=== PATIENT | male | born 1990 | race Caucasian/White ===

== ENCOUNTER 2025-05-20 22:00 | Inpatient (IN) | payer SELFPAY ==
[~2025-05-20 22:00] MED LIST: Iopamidol 300 61% 100 ML VIAL FS ONE
[2025-05-20] MEDS ORDERED: Ondansetron PF 4 MG/2 ML Vial ONE (22:30)
[2025-05-20 22:38] LABS: #Basophils 0.05 10x3/uL (0.0-0.2); #Eosinophils 0.16 10x3/uL (0.0-0.5); #Monocytes 0.81 10x3/uL (0.0-1.1); #Neutrophils 3.72 10x3/uL (1.5-8.4); %Basophils 0.8 % (0.0-2.0); %Eosinophils 2.5 % (0.0-6.0); %Lymphocytes 26.9 % (18.0-47.0); %Monocytes 12.5 % (0.0-10.0); %Neutrophils 57.1 % (40.0-75.0); Hematocrit 40.0 % (38.8-50.0); Hemoglobin 14.6 g/dL (13.5-17.5); Mean Corpuscular Hemoglobin 33.6 pg (27.0-33.0); Mean Corpuscular Volume 92.2 fL (81.2-95.1); Platelet Count 146 10x3/uL (150-450); Red Blood Cell (RBC) Count 4.34 10x6/uL (4.32-5.72); White Blood Cell (WBC) Count 6.50 10x3/uL (3.5-10.5)
[2025-05-20 22:52] LABS: Glucose, Urine (Dipstick) Normal (Negative); Leukocyte 25 (Negative); Protein, Urine (Dipstick) 30 mg/dl (Neg-Trace); Specific Gravity, Urine 1.015 (1.005-1.030)
[2025-05-20 22:52] LABS: ALT (SGPT) 154 U/L (Less than 45); AST (SGOT) 66 U/L (11-34); Albumin 4.9 g/dL (3.1-4.5); Alkaline Phosphatase 47 U/L (40-110); Anion Gap 16 mmol/L (10-20); BUN (Urea Nitrogen) 11 mg/dL (8.9-20.6); Bilirubin, Total 2.1 mg/dL (0.3-1.2); Calc. Creatinine Clearance 0 mL/min (70-130); Calcium 10.0 mg/dL (7.8-10.44); Carbon Dioxide 24 mmol/L (22-29); Chloride 102 mmol/L (98-107); Globulin 3.4 g/dL (2.4-3.5); Glucose 90 mg/dL (70-105); Lipase 266 U/L (8-78); Magnesium 1.9 mg/dL (1.6-2.6); Potassium 3.6 mmol/L (3.5-5.1); Sodium 138 mmol/L (136-145)
[2025-05-20 23:02] LABS: Bacteria/HPF None Seen HPF (None Seen); CAUTI Indications for Culture Dysuria,urgency,freq; RBC/HPF None Seen HPF (0-3); WBC/HPF 0-3 HPF (0-3)
[2025-05-20 23:03] LABS: Urine Culture Reflex No No
[2025-05-20] MEDS ORDERED: Ketorolac Tromethamine 30 MG (1 mL) VIAL ONE (23:12)
[2025-05-20] MEDS ORDERED: HYDROmorphone 0.5 MG/0.5 ML SYRINGE ONE (23:36)
[2025-05-20] MEDS ORDERED: Famotidine/PF 20 mg/2ml Vial ONE (23:36)
[2025-05-20] MEDS ORDERED: Guaifenesin DM 100-10/5 ML UDCUP PO PRN (23:53)
[2025-05-20] MEDS ORDERED: Senokot S 8.6-50 MG TAB PO PRN (23:53)
[2025-05-20] MEDS ORDERED: Acetaminophen 325 MG TAB PO PRN (23:53)
[2025-05-20] MEDS ORDERED: Ondansetron PF 4 MG/2 ML Vial IVP PRN (23:53)
[2025-05-21 00:52] VITALS: BMI 25.4
[2025-05-21] MEDS: HYDROcodone/Acetaminophen 10/325 mg Tablet PO PRN (01:06)
[2025-05-21] MEDS: diphenhydrAMINE 50 MG/ML VIAL IVP SCH ×2 (01:16→23:38)
[2025-05-21 04:16] LABS: #Basophils 0.05 10x3/uL (0.0-0.2); #Eosinophils 0.25 10x3/uL (0.0-0.5); #Monocytes 0.61 10x3/uL (0.0-1.1); #Neutrophils 2.21 10x3/uL (1.5-8.4); %Basophils 1.0 % (0.0-2.0); %Eosinophils 5.0 % (0.0-6.0); %Lymphocytes 37.7 % (18.0-47.0); %Monocytes 12.2 % (0.0-10.0); %Neutrophils 44.1 % (40.0-75.0); Hematocrit 36.4 % (38.8-50.0); Hemoglobin 13.2 g/dL (13.5-17.5); Mean Corpuscular Hemoglobin 34.0 pg (27.0-33.0); Mean Corpuscular Volume 93.8 fL (81.2-95.1); Platelet Count 123 10x3/uL (150-450); Red Blood Cell (RBC) Count 3.88 10x6/uL (4.32-5.72); White Blood Cell (WBC) Count 5.01 10x3/uL (3.5-10.5)
[2025-05-21 04:17] LABS: INR-International Normal Ratio 1.1; PTT 26.8 sec (22.0-33.0); Prothrombin Time 12.1 sec (9.5-12.1)
[2025-05-21 04:24] LABS: ALT (SGPT) 129 U/L (Less than 45); AST (SGOT) 52 U/L (11-34); Albumin 4.2 g/dL (3.1-4.5); Alkaline Phosphatase 39 U/L (40-110); Anion Gap 17 mmol/L (10-20); BUN (Urea Nitrogen) 9 mg/dL (8.9-20.6); Bilirubin, Total 1.7 mg/dL (0.3-1.2); Calc. Creatinine Clearance 162 mL/min (70-130); Calcium 8.9 mg/dL (7.8-10.44); Carbon Dioxide 22 mmol/L (22-29); Chloride 107 mmol/L (98-107); Globulin 2.8 g/dL (2.4-3.5); Glucose 82 mg/dL (70-105); Lipase 113 U/L (8-78); Magnesium 1.8 mg/dL (1.6-2.6); Potassium 4.2 mmol/L (3.5-5.1); Sodium 142 mmol/L (136-145)
[2025-05-21 04:27] LABS: Cardiac Risk 1.5 (Less than 4.5); Cholesterol 119 mg/dl (< 200 Desired); HDL Cholesterol 82 mg/dL (>60 Neg Risk); LDL Cholesterol, Calculated 25 mg/dL; Triglycerides 60 mg/dL (Less than 150)
[2025-05-21] MEDS: Ketorolac Tromethamine 30 MG (1 mL) VIAL IVP SCH (04:48)
[2025-05-21] MEDS: Multivit, Therapeutic 1 TAB PO SCH (08:50)
[2025-05-21] MEDS: Folic Acid 1 MG TAB PO SCH (08:50)
[2025-05-21] MEDS: Enoxaparin 40 MG (0.4 mL) SYRINGE SC SCH (08:51)
[2025-05-21] MEDS: Famotidine/PF 20 mg/2ml Vial SLOW IVP SCH (08:51)
[2025-05-21] MEDS ORDERED: Acetaminophen 500 MG TAB PO SCH (10:30)
[2025-05-21] MEDS ORDERED: HYDROmorphone 0.5 MG/0.5 ML SYRINGE SLOW IVP PRN (10:31)
[2025-05-21] MEDS: Acetaminophen 500 MG TAB PO SCH (10:58)
[2025-05-21] MEDS: HYDROmorphone 0.5 MG/0.5 ML SYRINGE SLOW IVP SCH ×2 (10:59→18:33)
[2025-05-21 12:15] LABS: Cocaine Metabolite Screen Negative (Negative); THC/Cannabinoid Screen Negative (Negative); Tricyclic Screen Negative (Negative)
[2025-05-21] MEDS: HYDROmorphone 2 MG TAB PO PRN (16:00)
[2025-05-22 05:45] LABS: ALT (SGPT) 88 U/L (Less than 45); AST (SGOT) 35 U/L (11-34); Albumin 3.6 g/dL (3.1-4.5); Alkaline Phosphatase 35 U/L (40-110); Anion Gap 9 mmol/L (10-20); BUN (Urea Nitrogen) 6 mg/dL (8.9-20.6); Bilirubin, Total 1.3 mg/dL (0.3-1.2); Calc. Creatinine Clearance 157 mL/min (70-130); Calcium 8.7 mg/dL (7.8-10.44); Carbon Dioxide 27 mmol/L (22-29); Chloride 106 mmol/L (98-107); Globulin 2.6 g/dL (2.4-3.5); Glucose 166 mg/dL (70-105); Lipase 52 U/L (8-78); Magnesium 1.8 mg/dL (1.6-2.6); Potassium 3.8 mmol/L (3.5-5.1); Sodium 138 mmol/L (136-145)
[2025-05-22 06:01] LABS: Platelet Count 119 10x3/uL (150-450)
[2025-05-22 06:02] LABS: #Basophils 0.04 10x3/uL (0.0-0.2); #Eosinophils 0.42 10x3/uL (0.0-0.5); #Monocytes 0.38 10x3/uL (0.0-1.1); #Neutrophils 1.61 10x3/uL (1.5-8.4); %Basophils 0.9 % (0.0-2.0); %Eosinophils 9.7 % (0.0-6.0); %Lymphocytes 43.3 % (18.0-47.0); %Monocytes 8.8 % (0.0-10.0); %Neutrophils 37.1 % (40.0-75.0); Hematocrit 36.2 % (38.8-50.0); Hemoglobin 12.6 g/dL (13.5-17.5); Mean Corpuscular Hemoglobin 32.8 pg (27.0-33.0); Mean Corpuscular Volume 94.3 fL (81.2-95.1); Red Blood Cell (RBC) Count 3.84 10x6/uL (4.32-5.72); White Blood Cell (WBC) Count 4.34 10x3/uL (3.5-10.5)
[2025-05-22] MEDS: Cyanocobalamin (Vitamin B-12) 1,000 MCG TAB PO SCH (08:26)
[2025-05-22] MEDS: diphenhydrAMINE 25 MG CAP PO SCH (21:36)
[2025-05-23 05:01] LABS: Platelet Count 126 10x3/uL (150-450)
[2025-05-23 05:02] LABS: Hematocrit 37.3 % (38.8-50.0); Hemoglobin 12.9 g/dL (13.5-17.5); Mean Corpuscular Hemoglobin 32.7 pg (27.0-33.0); Mean Corpuscular Volume 94.4 fL (81.2-95.1); Red Blood Cell (RBC) Count 3.95 10x6/uL (4.32-5.72); White Blood Cell (WBC) Count 4.18 10x3/uL (3.5-10.5)
[2025-05-23 05:04] LABS: #Basophils 0.05 10x3/uL (0.0-0.2); #Eosinophils 0.39 10x3/uL (0.0-0.5); #Monocytes 0.50 10x3/uL (0.0-1.1); #Neutrophils 1.47 10x3/uL (1.5-8.4); %Basophils 1.2 % (0.0-2.0); %Eosinophils 9.3 % (0.0-6.0); %Lymphocytes 42.1 % (18.0-47.0); %Monocytes 12.0 % (0.0-10.0); %Neutrophils 35.2 % (40.0-75.0)
[2025-05-23 05:08] LABS: ALT (SGPT) 74 U/L (Less than 45); AST (SGOT) 28 U/L (11-34); Albumin 3.9 g/dL (3.1-4.5); Alkaline Phosphatase 55 U/L (40-110); Anion Gap 11 mmol/L (10-20); BUN (Urea Nitrogen) 6 mg/dL (8.9-20.6); Bilirubin, Total 0.5 mg/dL (0.3-1.2); Calc. Creatinine Clearance 145 mL/min (70-130); Calcium 8.9 mg/dL (7.8-10.44); Carbon Dioxide 29 mmol/L (22-29); Chloride 107 mmol/L (98-107); Globulin 2.7 g/dL (2.4-3.5); Glucose 102 mg/dL (70-105); Lipase 42 U/L (8-78); Magnesium 1.9 mg/dL (1.6-2.6); Potassium 3.8 mmol/L (3.5-5.1); Sodium 143 mmol/L (136-145)
[2025-05-23] MEDS ORDERED: Bupivacaine/Epinephrine 0.25% 30 ML VIAL ONE (12:00)
[2025-05-23] MEDS ORDERED: Ondansetron PF 4 MG/2 ML Vial ONE (13:25)
[2025-05-23] MEDS ORDERED: PROPOFOL 40 ML ONE (13:25)
[2025-05-23] MEDS ORDERED: Rocuronium Bromide 10 MG/ML (10ML VIAL) ONE ×2 (13:25→13:54)
[2025-05-23] MEDS ORDERED: Lidocaine 1% PF 5 ML VIAL ONE (13:25)
[2025-05-23] MEDS ORDERED: SUGAMMADEX SODIUM 200 MG/2 ML VIAL ONE ×2 (13:25→14:27)
[2025-05-23] MEDS ORDERED: Glycopyrrolate 0.2 MG/ML 5 ML SYRINGE ONE ×2 (13:53→14:27)
[2025-05-23] MEDS ORDERED: Lidocaine 4% PF 5 ML AMP ONE ×2 (13:53→14:27)
[2025-05-23] MEDS: HYDROcodone/Acetaminophen 7.5/325 mg Tablet PO PRN (21:10)
[2025-05-23] MEDS: diphenhydrAMINE 25 MG CAP PO PRN (22:10)
[2025-05-24 05:09] LABS: #Basophils Less than 0.03 10x3/uL (0.0-0.2); #Eosinophils Less than 0.03 10x3/uL (0.0-0.5); #Monocytes 0.42 10x3/uL (0.0-1.1); #Neutrophils 6.20 10x3/uL (1.5-8.4); %Basophils 0.1 % (0.0-2.0); %Eosinophils 0.0 % (0.0-6.0); %Lymphocytes 8.6 % (18.0-47.0); %Monocytes 5.8 % (0.0-10.0); %Neutrophils 85.1 % (40.0-75.0); Hematocrit 37.6 % (38.8-50.0); Hemoglobin 13.0 g/dL (13.5-17.5); Mean Corpuscular Hemoglobin 33.0 pg (27.0-33.0); Mean Corpuscular Volume 95.4 fL (81.2-95.1); Platelet Count 128 10x3/uL (150-450); Red Blood Cell (RBC) Count 3.94 10x6/uL (4.32-5.72); White Blood Cell (WBC) Count 7.29 10x3/uL (3.5-10.5)
[2025-05-24 05:27] LABS: ALT (SGPT) 77 U/L (Less than 45); AST (SGOT) 50 U/L (11-34); Albumin 3.9 g/dL (3.1-4.5); Alkaline Phosphatase 41 U/L (40-110); Anion Gap 11 mmol/L (10-20); BUN (Urea Nitrogen) 5 mg/dL (8.9-20.6); Bilirubin, Total 0.7 mg/dL (0.3-1.2); Calc. Creatinine Clearance 143 mL/min (70-130); Calcium 9.0 mg/dL (7.8-10.44); Carbon Dioxide 27 mmol/L (22-29); Chloride 107 mmol/L (98-107); Globulin 2.7 g/dL (2.4-3.5); Glucose 143 mg/dL (70-105); Lipase 17 U/L (8-78); Magnesium 1.7 mg/dL (1.6-2.6); Potassium 4.1 mmol/L (3.5-5.1); Sodium 141 mmol/L (136-145)
[2025-05-24 10:50] VITALS: BP 123/76; TEMP 98.1
== END 2025-05-24 11:55 | disposition home or self-care (01) | DRG 418 ==
LOC: CSHERS 22:00 → CSHERHOLD 23:53 → CSHTELE 05-21 00:45
PROVIDERS: ADMIT Student in an Organized Health Care Education/Training Program; ATTEND Internal Medicine
PROC: 0FT44ZZ Resection of Gallbladder, Percutaneous Endoscopic Approach (ICD-10-PCS; principal; 2025-05-23)
PROC: 8E0W4CZ Robotic Assisted Procedure of Trunk Region, Percutaneous Endoscopic Approach (ICD-10-PCS; 2025-05-23)
PROC: BF101ZZ Fluoroscopy of Bile Ducts using Low Osmolar Contrast (ICD-10-PCS; 2025-05-23)
DX: K85.20 Alcohol induced acute pancreatitis without necrosis or infection (principal); F10.239 Alcohol dependence with withdrawal, unspecified; K70.10 Alcoholic hepatitis without ascites; F17.200 Nicotine dependence, unspecified, uncomplicated; R74.01 Elevation of levels of liver transaminase levels; G40.909 Epilepsy, unspecified, not intractable, without status epilepticus; K76.0 Fatty (change of) liver, not elsewhere classified; D69.6 Thrombocytopenia, unspecified; E88.09 Other disorders of plasma-protein metabolism, not elsewhere classified; K80.20 Calculus of gallbladder without cholecystitis without obstruction; K83.8 Other specified diseases of biliary tract
CPT/HCPCS: 36415; 47532; 74177; 76705; 80053; 80061; 80306; 81001; 82607; 83615; 83690; 83735; 84100; 85025; 85610; 85730; 88304; 93005; 93010; 96361; 96374; 96375; C1889; C1894; J0694; J1100; J1171; J1200; J1650; J1885; J2060; J2250; J2270; J2272; J2405; J2704; J3010; J3411; J3490; J7030; J7120; Q9967; S2900